=== PATIENT | female | born 1990 | race Two or more races ===

== ENCOUNTER 2018-05-02 12:52 | Emergency (ER) | payer BC ==
[~2018-05-02] VITALS: Ht 157.5 cm; Wt 96.3 kg
[~2018-05-02 12:52] MED LIST: IBUP-1222 PO; OXYC-302 PO
[2018-05-02 13:00] VITALS: BP 125/83
[2018-05-02 13:56] LABS: BASOPHILS # (AUTO) 0.11 x10^3/uL (0-0.1); BASOPHILS % (AUTO) 1 % (0-1); EOSINOPHILS # (AUTO) 0.17 x10^3/uL (0-0.4); EOSINOPHILS % (AUTO) 2 % (1-7); LYMPHOCYTES # (AUTO) 1.54 x10^3/uL (1-3.4); LYMPHOCYTES % (AUTO) 16 % (22-44); MD NO; MEAN CORPUSCULAR HGB CONC 31.7 g/dL (32.4-35.8); MEAN CORPUSCULAR VOLUME 75.8 fL (80-100); MEAN PLATELET VOLUME 9.4 fL (7.4-10.4); MONOCYTES # (AUTO) 0.52 x10^3/uL (0.2-0.8); MONOCYTES % (AUTO) 5 % (2-9); NEUTROPHILS # (AUTO) 7.25 x10^3/uL (1.8-6.8); NEUTROPHILS % (AUTO) 76 % (42-75); PLATELET COUNT 384 x10^3/uL (130-400); RED BLOOD COUNT 4.53 x10^6/uL (3.82-5.3); RED CELL DISTRIBUTION WIDTH 18.1 % (9.6-15.2)
[2018-05-02 14:05] LABS: ALBUMIN 3.6 g/dL (3.4-5.0); ANION GAP 7 mmol/L (5-15); CALCIUM 8.8 mg/dL (8.5-10.1); CHLORIDE 106 mmol/L (98-107); CREATININE 0.58 mg/dL (0.55-1.02)
== END 2018-05-02 15:26 | disposition home or self-care (01) ==
LOC: ED 15:25
DX: N93.8 Other specified abnormal uterine and vaginal bleeding (principal)
CPT/HCPCS: 36415; 76830; 80048; 82040; 84703; 85025; 99285

== ENCOUNTER 2019-08-15 10:43 | Emergency (ER) | payer BC ==
[~2019-08-15] VITALS: Ht 157.5 cm; Wt 91.7 kg
--- NOTE | 2019-08-15 11:18 | NUR ---
PT TO ED FOR RLQ ABD PAIN STARTING LAST NOC, WORSE TODAY. PT REPORTS ASSOCIATED NAUSEA THIS AM. PT DENIES ANY CHANGES IN STOOL. PT CONNECTED TO ALL MONITORS. VSS. PT UP SELF WITH STEADY GAIT AT THIS TIME TO PROVIDE UA SAMPLE. AWAITIGN EDMD ASSESSMENT.
--- NOTE | 2019-08-15 11:26 | NUR ---
UA SAMPLE PROVIDED. PT BACK TO ROOM WTIH STEADY GAIT. RECONNECTED TO MONITORS. VSS. NO NEEDS EXPRESSED. CALL LIGHT WTIHIN REACH.
[2019-08-15 11:57] LABS: BASOPHILS # (AUTO) 0.06 x10^3/uL (0-0.1); BASOPHILS % (AUTO) 1 % (0-1); EOSINOPHILS # (AUTO) 0.09 x10^3/uL (0-0.4); EOSINOPHILS % (AUTO) 1 % (1-7); LYMPHOCYTES # (AUTO) 1.52 x10^3/uL (1-3.4); LYMPHOCYTES % (AUTO) 22 % (22-44); MD NO; MEAN CORPUSCULAR HGB CONC 32.3 g/dL (32.4-35.8); MEAN CORPUSCULAR VOLUME 83.5 fL (80-100); MEAN PLATELET VOLUME 9.5 fL (7.4-10.4); MONOCYTES # (AUTO) 0.39 x10^3/uL (0.2-0.8); MONOCYTES % (AUTO) 6 % (2-9); NEUTROPHILS # (AUTO) 4.97 x10^3/uL (1.8-6.8); NEUTROPHILS % (AUTO) 71 % (42-75); PLATELET COUNT 315 x10^3/uL (130-400); RED BLOOD COUNT 4.71 x10^6/uL (3.82-5.3); RED CELL DISTRIBUTION WIDTH 16.3 % (9.6-15.2)
[2019-08-15] MEDS ORDERED: ONDANSETRON 2MG/ML, 2ML IVPush ONE (12:00)
[2019-08-15] MEDS ORDERED: SODIUM CHLORIDE 0.9% 1,000ML IVBOLUS ONE (12:00)
[2019-08-15] MEDS ORDERED: HYDROmorphone 2 MG/ML, 1ML IVPush PRN (12:00)
[2019-08-15] MEDS ORDERED: SODIUM CHLORIDE FLUSH 10ML SYR IVF ONE (12:00)
[2019-08-15 12:02] LABS: ALANINE AMINOTRANSFERASE 25 U/L (12-78); ALBUMIN 3.8 g/dL (3.4-5.0); ANION GAP 7 mmol/L (5-15); CALCIUM 8.9 mg/dL (8.5-10.1); CHLORIDE 107 mmol/L (98-107); CREATININE 0.61 mg/dL (0.55-1.02)
[2019-08-15 12:07] LABS: ALKALINE PHOSPHATASE 90 U/L (45-117); BILIRUBIN,TOTAL 0.3 mg/dL (0.2-1.0); TOTAL PROTEIN 8.7 g/dL (6.4-8.2)
[2019-08-15] MEDS ORDERED: ONDANSETRON 2MG/ML, 2ML ONE (12:16)
[2019-08-15 12:19] LABS: MICROSCOPIC NOT IND
--- NOTE | 2019-08-15 12:32 | NUR ---
PT RESTING IN ROOM. VSS. PT MEDICATED PER MAR. NO NEEDS EXPRESSED. CALL LIGHT WITHIN REACH. AWAITING CT.
[2019-08-15 12:34] LABS: CULTURE INDICATED? NO
[2019-08-15 13:12] VITALS: BP 101/64
--- NOTE | 2019-08-15 13:16 | NUR ---
PT RESTING IN ROOM WITH FRIENDS AT BS. VSS. WARM BLANKET PROVIDED FOR COMFORT. NO OTHER NEEDS EXPRESSED. PT REPORTS DECREASE IN NAUSEA. AWAITING CT.
[2019-08-15] MEDS ORDERED: OMNIPAQUE 350 MG/ML, 100ML BOTTLE ONE (13:34)
== END 2019-08-15 14:41 | disposition home or self-care (01) ==
LOC: ED 12:16
DX: R10.11 Right upper quadrant pain (principal); R10.31 Right lower quadrant pain
CPT/HCPCS: 36415; 74177; 80053; 81003; 84703; 85025; 96374; 99284; J2405; J7030; Q9967

== ENCOUNTER → 2020-07-31 | Outpatient (CLI) | payer BC ==
[2020-07-31 13:16] LABS: BASOPHILS % (AUTO) 1 % (0-1); EOSINOPHILS % (AUTO) 2 % (1-7); LYMPHOCYTES % (AUTO) 16 % (22-44); MEAN CORPUSCULAR HEMOGLOBIN 26.2 pg (27.0-34.8); MEAN CORPUSCULAR HGB CONC 32.2 g/dL (32.4-35.8); MEAN PLATELET VOLUME 9.1 fL (7.4-10.4); MONOCYTES % (AUTO) 6 % (2-9); NEUTROPHILS % (AUTO) 75 % (42-75); PLATELET COUNT 307 x10^3/uL (130-400); RED BLOOD COUNT 3.98 x10^6/uL (3.82-5.3); RED CELL DISTRIBUTION WIDTH 16.1 % (9.6-15.2)
[2020-07-31 13:17] LABS: MD NO
[2020-07-31 13:18] LABS: ALANINE AMINOTRANSFERASE 13 U/L (12-78); ALBUMIN 2.4 g/dL (3.4-5.0); ANION GAP 8 mmol/L (5-15); BILIRUBIN, DIRECT 0.1 mg/dL (0.1-0.2); CALCIUM 8.5 mg/dL (8.5-10.1); CHLORIDE 109 mmol/L (98-107); CREATININE 0.43 mg/dL (0.55-1.02)
[2020-07-31 13:19] LABS: MICROSCOPIC INDICATED
[2020-07-31 13:21] LABS: CREATININE,URINE RANDOM 34.5 mg/dL
[2020-07-31 13:24] LABS: ALKALINE PHOSPHATASE 150 U/L (45-117); BILIRUBIN,TOTAL 0.3 mg/dL (0.2-1.0)
== END | disposition home or self-care (01) ==
LOC: LDOP 12:42
PROVIDERS: ATTEND Obstetrics & Gynecology
DX: O13.3 Gestational [pregnancy-induced] hypertension without significant proteinuria, third trimester (principal); Z3A.35 35 weeks gestation of pregnancy
CPT/HCPCS: 36415; 59025; 80053; 81001; 82248; 82570; 84156; 84550; 85025

== ENCOUNTER 2020-08-19 00:59 | Inpatient (IN) | payer BC ==
[~2020-08-19] VITALS: Ht 157.5 cm; Wt 111.0 kg
[2020-08-19] MEDS ORDERED: NEWBORN KIT ONE (01:38)
[2020-08-19] MEDS ORDERED: OXYTOCIN 30U/ 0.9% NaCL 500ML 500 ML ONE ×2 (01:38→08:36)
[2020-08-19] MEDS ORDERED: TERBUTALINE 1 MG/ML, 1ML IVPush PRN (02:00)
[2020-08-19] MEDS ORDERED: LACTATED RINGERS 1,000 ML IV SCH ×2 (02:00→03:30)
[2020-08-19] MEDS ORDERED: LABETALOL 5MG/ML, 20ML IVPush PRN ×3 (02:00)
[2020-08-19] MEDS ORDERED: METOCLOPRAMIDE 5 MG/ML, 2ML IVPush PRN (02:00)
[2020-08-19] MEDS ORDERED: FENTANYL PF 100 MCG/2ML IVPush PRN (02:00)
[2020-08-19] MEDS ORDERED: hydrALAzine 20 MG/ML, 1ML IVPush ONE (02:00)
[2020-08-19] MEDS ORDERED: OXYTOCIN 30U/ 0.9% NaCL 500ML 500 ML IV PRN (02:00)
[2020-08-19] MEDS ORDERED: SODIUM CITRATE/CITRIC ACID 30 ML UDC PO PRN (02:00)
[2020-08-19] MEDS ORDERED: TERBUTALINE 1 MG/ML, 1ML SQ PRN (02:00)
[2020-08-19] MEDS ORDERED: FENTANYL PF 100 MCG/2ML IV PRN (02:00)
[2020-08-19] MEDS ORDERED: D5%-LACTATED RINGERS 1,000 ML IV SCH (02:00)
[2020-08-19] MEDS ORDERED: PENICILLIN GK 5,000,000 UNITS in DEXTROSE 5% 100 ML IVPB ONE (02:00)
[2020-08-19] MEDS ORDERED: ONDANSETRON 2MG/ML, 2ML IVPush PRN (02:00)
[2020-08-19] MEDS ORDERED: OXYTOCIN 30U/ 0.9% NaCL 500ML 500 ML IV ONE (02:00)
[2020-08-19 02:13] LABS: BASOPHILS % (AUTO) 1 % (0-1); EOSINOPHILS % (AUTO) 2 % (1-7); LYMPHOCYTES % (AUTO) 19 % (22-44); MEAN CORPUSCULAR HEMOGLOBIN 25.8 pg (27.0-34.8); MEAN PLATELET VOLUME 9.5 fL (7.4-10.4); MONOCYTES % (AUTO) 8 % (2-9); NEUTROPHILS % (AUTO) 71 % (42-75); PLATELET COUNT 295 x10^3/uL (130-400); RED BLOOD COUNT 4.08 x10^6/uL (3.82-5.3); RED CELL DISTRIBUTION WIDTH 16.9 % (9.6-15.2)
[2020-08-19] MEDS ORDERED: LABETALOL 5MG/ML, 20ML ONE (02:14)
[2020-08-19 02:20] LABS: ALANINE AMINOTRANSFERASE 15 U/L (12-78); ALBUMIN 2.3 g/dL (3.4-5.0); ANION GAP 6 mmol/L (5-15); CALCIUM 8.6 mg/dL (8.5-10.1); CHLORIDE 111 mmol/L (98-107); CREATININE 0.52 mg/dL (0.55-1.02)
[2020-08-19 02:22] LABS: ALKALINE PHOSPHATASE 173 U/L (45-117); BILIRUBIN,TOTAL 0.2 mg/dL (0.2-1.0); TOTAL PROTEIN 6.9 g/dL (6.4-8.2)
[2020-08-19 02:31] LABS: MD NO
[2020-08-19 02:37] LABS: BILIRUBIN, DIRECT < 0.1 mg/dL (0.1-0.2)
[2020-08-19] MEDS ORDERED: BUPIVACAINE 0.25% ONE ×2 (02:55→03:10)
[2020-08-19] MEDS ORDERED: LIDOCAINE/PF 1%-EPI 1:200K, 30 ML ONE (02:55)
[2020-08-19] MEDS ORDERED: FENTANYL/BUPIV./NS/PF 250 ML EPIDCONT ONE (03:10)
[2020-08-19] MEDS ORDERED: EPHEDRINE 50 MG/ML, 1ML IVPush PRN (03:30)
[2020-08-19] MEDS ORDERED: LACTATED RINGERS 1,000 ML IVBOLUS PRN (03:30)
[2020-08-19] MEDS ORDERED: FENTANYL/BUPIV./NS/PF 250 ML EPIDCONT SCH (03:30)
[2020-08-19 04:03] LABS: MICROSCOPIC AUTO
[2020-08-19] MEDS ORDERED: PENICILLIN GK 2,500,000 UNITS in DEXTROSE 5% 100 ML IVPB SCH (06:00)
[2020-08-19] MEDS ORDERED: MAGNESIUM SULF. PMX 20GM/500ML 500 ML IV SCH (06:30)
[2020-08-19] MEDS ORDERED: MAGNESIUM SULFATE PMX 4GM/100M 100 ML IVPB ONE (06:30)
[2020-08-19] MEDS ORDERED: MAGNESIUM SULF. PMX 20GM/500ML 500 ML IV ONE (06:37)
[2020-08-19] MEDS ORDERED: MAGNESIUM SULFATE PMX 4GM/100M 100 ML ONE (06:37)
[2020-08-19] MEDS ORDERED: SIMETHICONE 80 MG CHEW TAB PO PRN (08:00)
[2020-08-19] MEDS ORDERED: OXYcodone IR 5MG TABLET PO PRN (08:00)
[2020-08-19] MEDS ORDERED: MISOPROSTOL 200 MCG TABLET PR PRN (08:00)
[2020-08-19] MEDS ORDERED: ACETAMINOPHEN 325 MG TABLET PO PRN (08:00)
[2020-08-19] MEDS ORDERED: ONDANSETRON 2MG/ML, 2ML IV PRN (08:00)
[2020-08-19] MEDS: OXYTOCIN 30U/ 0.9% NaCL 500ML 500 ML IV SCH ×2 (08:41→18:00)
[2020-08-19] MEDS: PRENATAL VIT/IRON/FA 1 EACH TABLET PO SCH (09:00)
[2020-08-19] MEDS: IBUPROFEN 600 MG TABLET PO PRN ×2 (11:36→18:03)
[2020-08-19] MEDS: OXYcodone/APAP 5/325MG TABLET PO PRN ×2 (11:37→18:03)
[2020-08-19 12:10] VITALS: BP 137/78
[2020-08-19 15:52] LABS: BASOPHILS % (AUTO) 1 % (0-1); EOSINOPHILS % (AUTO) 1 % (1-7); LYMPHOCYTES % (AUTO) 14 % (22-44); MEAN CORPUSCULAR HEMOGLOBIN 25.5 pg (27.0-34.8); MEAN CORPUSCULAR HGB CONC 31.8 g/dL (32.4-35.8); MEAN PLATELET VOLUME 9.4 fL (7.4-10.4); MONOCYTES % (AUTO) 7 % (2-9); NEUTROPHILS % (AUTO) 78 % (42-75); PLATELET COUNT 242 x10^3/uL (130-400); RED BLOOD COUNT 3.67 x10^6/uL (3.82-5.3); RED CELL DISTRIBUTION WIDTH 16.8 % (9.6-15.2)
[2020-08-19 16:04] LABS: MD NO
[2020-08-19 16:30] VITALS: BP 128/76
[2020-08-19 19:20] VITALS: BP 133/83
[2020-08-20] MEDS: OXYcodone/APAP 5/325MG TABLET PO PRN (00:25)
[2020-08-20] MEDS: DOCUSATE 100 MG CAPSULE PO PRN ×2 (00:25→08:17)
[2020-08-20] MEDS: IBUPROFEN 600 MG TABLET PO PRN ×2 (00:25→08:17)
[2020-08-20 00:30] VITALS: BP 113/71
[2020-08-20] MEDS: OXYTOCIN 30U/ 0.9% NaCL 500ML 500 ML IV SCH ×2 (04:00→14:00)
[2020-08-20 04:45] VITALS: BP 134/82
[2020-08-20 07:30] VITALS: BP 138/86
[2020-08-20] MEDS: PRENATAL VIT/IRON/FA 1 EACH TABLET PO SCH (08:17)
[2020-08-20] MEDS ORDERED: IBUP-1222 PO (08:23)
[2020-08-20] MEDS ORDERED: FERR325T23 PO (08:23)
== END 2020-08-20 18:13 | disposition home or self-care (01) | DRG 806 ==
LOC: LDOP 00:59 → LDIP 01:48 → 2NW 09:33
PROVIDERS: ADMIT Pediatrics; ATTEND Obstetrics & Gynecology
PROC: 0HQ9XZZ Repair Perineum Skin, External Approach (ICD-10-PCS; principal; 2020-08-19)
PROC: 10E0XZZ Delivery of Products of Conception, External Approach (ICD-10-PCS; 2020-08-19)
PROC: 3E0R3BZ Introduction of Anesthetic Agent into Spinal Canal, Percutaneous Approach (ICD-10-PCS; 2020-08-19)
PROC: 00HU33Z Insertion of Infusion Device into Spinal Canal, Percutaneous Approach (ICD-10-PCS; 2020-08-19)
DX: O14.04 Mild to moderate pre-eclampsia, complicating childbirth (principal); D62 Acute posthemorrhagic anemia; Z37.0 Single live birth; Z20.828 Contact with and (suspected) exposure to other viral communicable diseases; O70.0 First degree perineal laceration during delivery; O99.02 Anemia complicating childbirth; Z3A.38 38 weeks gestation of pregnancy
CPT/HCPCS: 36415; 80053; 81001; 82248; 84550; 85025; 86592; 86850; 86900; 87635; G0378; J2540; J2590